=== PATIENT | male | born 1940 | race Caucasian/White ===

== ENCOUNTER 2017-07-25 08:41 | Emergency (ER) | payer OTHER ==
[~2017-07-25] VITALS: Ht 167.6 cm; Wt 75.0 kg
[~2017-07-25 08:41] MED LIST: CHOLESTEROL MED; LISI10TA2 PO; METF500T4 PO; OMEG-80 PO; PRAV20TA63 PO
[2017-07-25 08:43] VITALS: Ht 167.6 cm; Wt 75.0 kg
--- NOTE | 2017-07-25 09:00 | ERD ---
ER Documentation Chief Complaint Date/Time DATE: 07/25/17 TIME: 08:57 Chief Complaint cough & congestion x4 days, seen by pcp yesterday given abx & cough med HPI 77-year-old male brought in by daughter complaining of cough and congestion 1 week. Cough is productive, worse at night. He was seen by PCP yesterday, and was given azithromycin and Robitussin. He is here today because he feels that Robitussin has not helped, and he had not slept for 2 days. She has history of diabetes, hypertension, and asthma. Denies shortness of breath at this time. Denies chest pain. Ice fever or chills. ROS All systems reviewed and are negative except as per history of present illness. Medications Home Meds Active Scripts Sodium Chloride (Saline Nasal Mist) 126 Ml Mist, 2 SPRAY NASAL Q2H Y for NASAL CONGESTION, #1 BOTTLE Prov:RADHA MARTINEZ. [employer] CONSULTANT 07/25/17 Guaifenesin-Codeine Phosphate* (Guaifenesin* AC Cough Syrup) 473 Ml Liquid, 10 ML PO QHS Y for COUGH, #60 ML Prov:RADHA MARTINEZ. [employer]AND CONSULTANT 07/25/17 Reported Medications [place]-3S/Dha/Epa/Fish Oil/D3 (FISH OIL + D3 SOFTGEL) 1 Each Capsule, 1 EACH PO DAILY 07/13/13 Metformin* (Glucophage*) 500 Mg Tab, 500 MG PO BID 07/13/13 Pravastatin Sodium* (Pravastatin Sodium*) 20 Mg Tablet, 20 MG PO DAILY 07/13/13 Lisinopril* (Lisinopril*) 10 Mg Tablet, 10 MG PO DAILY 07/13/13 [Cholesterol Med] No Conflict Check, DAILY 07/13/13 Allergies Allergies: Coded Allergies: No Known Allergy (Unverified , 07/13/13) PMhx/Soc History of Surgery: No Anesthesia Reaction: No Hx Neurological Disorder: No Hx Respiratory Disorders: No Hx Cardiac Disorders: Yes (HIGH CHOL) Hx Psychiatric Problems: No Hx Miscellaneous Medical Probl: Yes (dm, high cholesterol) Hx Alcohol Use: No Hx Substance Use: No Hx Tobacco Use: No (MANY YEARS AGO) Physical Exam Vitals Vital Signs Date Time Temp Pulse Resp B/P Pulse Ox O2 Delivery O2 Flow Rate FiO2 07/25/17 08:43 97.1 71 20 118/76 97 Physical Exam General: Well-developed, well-nourished, conscious and coherent, in no distress Skin: Warm and dry without rash, good texture and turgor Head: Normocephalic without evidence of trauma Eyes: Sclera and conjunctivae normal; pupils equal, round, and reactive to light; extraocular movements are intact Nose/Face: Nasal mucosa erythematous and swollen with clear rhinorrhea Mouth/throat: Mucous membranes are moist. Posterior pharynx clear without erythema or exudates Neck: Supple without meningismus or adenopathy. Carotids are equal. Trachea midline. No bruits or JVD Chest: Normal AP diameter. Good expansion without retractions. Nontender. Lung sounds diminished but clear to auscultate bilaterally with good tidal volume Heart: Regular rate and rhythm. No murmur, rub, or gallops heard Extremities: Full range of motion. Good strength bilaterally. No clubbing, cyanosis, or edema. Peripheral pulses are intact. Sensation intact Neuro: Alert and oriented 4, GCS 15. Cranial nerves grossly intact. Motor and sensory exams nonfocal. Moves all extremities. Speech clear. Gait normal Procedures/MDM 77-year-old male with history of diabetes, hypertension, asthma present ED with cough 1 week. Chest x-ray is obtained, it was negative. Patient is afebrile, in no respiratory distress. Lungs are clear to auscultate. I doubt that patient has pneumonia or bronchitis. Likely patient's symptoms are result of viral upper respiratory infection. Patient has already been given azithromycin and Robitussin by his PCP. I will prescribe guaifenesin with codeine for him to use at night only to help him sleep. Patient appears well, stable for discharge and outpatient management. Medical decision making shared with patient and family. Education provided to patient and family. Patient and family expressed understanding of the plan. Medications on discharge: Off this was codeine, saline nasal spray. Follow-up: Primary care provider in 2-3 days or return to ED if worse. Disclaimer: Inadvertent spelling and grammatical errors are likely due to EHR/ dictation software use and do not reflect on the overall quality of patient care. Also, please note that the electronic time recorded on this note does not necessarily reflect the actual time of the patient encounter. Departure Diagnosis: Primary Impression: URI (upper respiratory infection) URI type: acute nasopharyngitis (common cold) Qualified Code: J00 - Acute nasopharyngitis Condition: Stable RADHA MARTINEZ NP Jul 25, 2017 09:00
--- NOTE | 2017-07-25 09:34 | RADRPT ---
PROCEDURE: XR Chest. CLINICAL INDICATION: Cough TECHNIQUE: Single AP view of the chest were obtained COMPARISON: None FINDINGS: The heart and mediastinum are within normal limits. The pulmonary vasculature are unremarkable. The aorta demonstrates atherosclerotic calcifications. There is no lung consolidation, pleural effusio n or pneumothorax. Degenerative changes are seen within the thoracic spine. There is no acute osse ous abnormality. IMPRESSION: No acute disease. RPTAT: AA .Emelyn Lares MD, Date Time Electronically viewed and signed by .Emelyn Lares MD, MD on 07/25/2017 09:33 .J/
[2017-07-25] MEDS ORDERED: SODI126M NASAL (09:45)
[2017-07-25] MEDS ORDERED: GUAI473L22 PO (09:45)
== END 2017-07-25 10:03 | disposition home or self-care (01) ==
LOC: FTE 08:41
DX: J00 Acute nasopharyngitis [common cold] (principal); E11.9 Type 2 diabetes mellitus without complications; Z79.84 Long term (current) use of oral hypoglycemic drugs; Z87.891 Personal history of nicotine dependence
CPT/HCPCS: 71010; Z7502

== ENCOUNTER 2017-10-20 13:09 | Emergency (ER) | payer OTHER ==
[~2017-10-20] VITALS: Ht 152.4 cm; Wt 67.0 kg
[~2017-10-20 13:09] MED LIST changes: +GUAI473L22 PO; +SODI126M NASAL
[2017-10-20 13:17] VITALS: Ht 152.4 cm; Wt 67.0 kg
[2017-10-20] MEDS ORDERED: ACETAMINOPHEN 500 MG TAB PO STA (17:59)
[2017-10-20] MEDS ORDERED: SOD CHLORIDE 0.9% 1,000 ML IV ONE (18:00)
--- NOTE | 2017-10-20 18:08 | ERD ---
ER Documentation Chief Complaint Chief Complaint SOB,FEVER,COUGH HPI This is a 77-year-old male with a past medical history of hypertension, hyperlipidemia, diabetes presenting with fever, chills, productive cough with clear sputum and shortness of breath for several days. The patient's has similar symptoms. The patient has had no headache or vision changes. The patient does not endorse neck or back pain. The patient denies lightheadedness or dizziness. The patient has had no chest pain. The patient denies nausea or vomiting. The patient denies abdominal pain or changes to bowel movements or urination. The patient has had no focal deficits. The patient has had no weakness or numbness or tingling to the face or extremities. ROS All systems reviewed and are negative except as per history of present illness. Medications Home Meds Reported Medications Losartan Potassium* (Losartan Potassium*) Unknown Strength Tablet, 1 TAB PO DAILY, TAB 10/20/17 Metformin* (Glucophage*) 500 Mg Tab, 500 MG PO BID 07/13/13 Pravastatin Sodium* (Pravastatin Sodium*) 20 Mg Tablet, 20 MG PO DAILY 07/13/13 Discontinued Reported Medications [place]-3S/Dha/Epa/Fish Oil/D3 (FISH OIL + D3 SOFTGEL) 1 Each Capsule, 1 EACH PO DAILY 07/13/13 Lisinopril* (Lisinopril*) 10 Mg Tablet, 10 MG PO DAILY 07/13/13 [Cholesterol Med] No Conflict Check, DAILY 07/13/13 Discontinued Scripts Sodium Chloride (Saline Nasal Mist) 126 Ml Mist, 2 SPRAY NASAL Q2H Y for NASAL CONGESTION, #1 BOTTLE Prov:RADHA MARTINEZ [employer] DEVELOPER 07/25/17 Guaifenesin-Codeine Phosphate* (Guaifenesin* AC Cough Syrup) 473 Ml Liquid, 10 ML PO QHS Y for COUGH, #60 ML Prov:RADHA MARTINEZ. [employer]EZZA DEVELOPER 07/25/17 Allergies Allergies: Coded Allergies: Sulfa (Sulfonamide Antibiotics) (Unverified Allergy, Unknown, 10/20/17) PMhx/Soc History of Surgery: No Hx Neurological Disorder: No Hx Respiratory Disorders: No Hx Cardiac Disorders: Yes (HTN, Hypercholestrolemia) Hx Psychiatric Problems: No Hx Miscellaneous Medical Probl: Yes (DM) Hx Alcohol Use: No Hx Substance Use: No Hx Tobacco Use: No FmHx Family History: diabetes Physical Exam Vitals Vital Signs Date Time Temp Pulse Resp B/P Pulse Ox O2 Delivery O2 Flow Rate FiO2 10/20/17 23:05 2.0 10/20/17 23:04 74 22 97 Nasal Cannula 2.0 10/20/17 19:00 Nasal Cannula 2.0 10/20/17 13:17 102.2 114 18 131/71 88 Physical Exam Const: No apparent distress, well-developed, well-nourished Head: Normocephalic, Atraumatic Eyes: Normal Conjunctiva. Extraocular movements intact. Pupils equal, round and reactive to light ENT: Normal External Ears, Nose and Mouth. Neck: Full range of motion. No meningismus. Resp: Clear to auscultation bilaterally, No wheezes, rales or rhonchi Cardio: Tachycardia, Regular rhythm. No murmurs, rubs or gallops Abd: Soft, non tender, non distended. Normal bowel sounds Skin: No petechiae or rashes Back: No midline tenderness. No CVA tenderness Ext: No cyanosis, or edema Neur: Awake and alert, oriented 4. Cranial nerves intact. No facial droop. Normal strength, sensation and coordination. Psych: Normal Mood and Affect Result Diagram: 10/20/17183910/20/171839 Results 24 hrs Laboratory Tests Test 10/20/17 18:40 White Blood Count 7.710^3/ul Red Blood Count 5.8610^6/ul Hemoglobin 16.1g/dl Hematocrit 47.9% Mean Corpuscular Volume 81.7fl Mean Corpuscular Hemoglobin 27.5pg Mean Corpuscular Hemoglobin Concent 33.6g/dl Red Cell Distribution Width 13.0% Platelet Count 36015^3/UL Mean Platelet Volume 10.8fl Neutrophils % 84.8% Segmented Neutrophils % (Manual) 74% Band Neutrophils % (Manual) 11% Lymphocytes % 7.7% Lymphocytes % (Manual) 8% Reactive Lymphocytes % (Manual) 1% Monocytes % 6.8% Monocytes % (Manual) 6% Eosinophils % 0.1% Basophils % 0.3% Nucleated Red Blood Cells % 0.0/100WBC Neutrophils # 6.510^3/ul Neutrophils # (Manual) 5.810^3/ul Band Neutrophils # 0.810^3/ul Absolute Lymphocytes (Manual) 0.610^3/ul Lymphocytes # 0.610^3/ul Reactive Lymphocytes # 0.010^3/ul Monocytes # 0.510^3/ul Absolute Monocytes (Manual) 0.410^3/ul Eosinophils # 0.010^3/ul Basophils # 0.010^3/ul Nucleated Red Blood Cells # 0.010^3/ul Platelet Estimate NORMAL Poikilocytosis 1+ Anisocytosis 1+ Macrocytosis 1+ Sodium Level 141mmol/L Potassium Level 3.7mmol/L Chloride Level 99mmol/L Carbon Dioxide Level 28mmol/L Anion Gap 18 Blood Urea Nitrogen 16mg/dl Creatinine 1.06mg/dl Glucose Level 149mg/dl Lactic Acid Level 2.0mmol/L Calcium Level 9.2mg/dl Total Bilirubin 0.6mg/dl Direct Bilirubin 0.00mg/dl Indirect Bilirubin 0.6mg/dl Aspartate Amino Transf (AST/SGOT) 35IU/L Alanine Aminotransferase (ALT/SGPT) 51IU/L Alkaline Phosphatase 52IU/L Total Protein 8.3g/dl Albumin 4.7g/dl Globulin 3.60g/dl Albumin/Globulin Ratio 1.30 Current Medications Medications (Trade) Dose Ordered Sig/Vilma Route PRN Reason Start Time Stop Time Status Last Admin Dose Admin Acetaminophen 1000 mg 1,000 mg ONCE STAT PO 10/20/17 17:59 10/20/17 18:03 DC 10/20/17 18:26 Sodium Chloride (NS) 1,000 ml @ 1,000 mls/hr Q1H ONCE IV 10/20/17 18:00 10/20/17 18:59 DC 10/20/17 18:57 Ketorolac Tromethamine (Toradol) 15 mg ONCE STAT IV 10/20/17 20:59 10/20/17 21:01 DC 10/20/17 21:19 Oseltamivir Phosphate 75 mg 75 mg ONCE ONCE PO 10/20/17 21:00 10/20/17 21:01 DC 10/20/17 21:20 Azithromycin (Zithromax 500mg/ NS (Pmx)) 250 ml @ 250 mls/hr ONCE ONCE IVPB 10/20/17 21:00 10/20/17 21:59 DC 10/20/17 21:25 Ipratropium [place] (Atrovent 0.02% (Neb)) 1.5 mg ONCE STAT INH 10/20/17 21:00 10/20/17 21:01 DC 10/20/17 23:03 Albuterol (Proventil 0.5% (Neb)) 15 mg ONCE STAT INH 10/20/17 21:00 10/20/17 21:01 DC 10/20/17 23:03 Methylprednisolone Sodium Succinate (Solu-Medrol) 125 mg ONCE STAT IV 10/20/17 21:00 10/20/17 21:01 DC 10/20/17 21:20 Procedures/MDM MDM The patient's presentation warrants further investigation. The patient is flulike symptoms. He is febrile and tachycardic. A septic workup will be performed. The patient will be given IV fluids in the emergency department. Flu testing will be completed. LABS The patient's blood work was obtained and reviewed. The patient's CBC shows no leukocytosis but he does have a left shift with bandemia. The patient is febrile and does possible have a systemic infection. The patient is not anemic today. The patient's platelet count is unremarkable. The patient's CMP shows no signs of metabolic or electrolyte emergencies. The patient has unremarkable renal and hepatic function testing. The patient's lactic acid is right at 2.0. The patient's influenza testing was negative. However, his was positive for the flu. I have high suspicion in this patient for the flu in this setting and I will treat. EKG EKG read by me: Rate/Rhythm: Regular rate and rhythm at a rate of 89 bpm Intervals: Normal [place]: Left shifted Impression: No evidence of ischemia or arrhythmia IMAGING CXR FINDINGS: The cardiomediastinal silhouette demonstrates enlargement of the cardiac silhouette. There are aortic calcifications. There is bilateral lower lung peribronchial thickening. No pleural effusion is seen. No definite pneumothorax. No acute osseous abnormality. IMPRESSION: Bilateral lower lung peribronchial thickening, which can be seen with bronchitis. No focal consolidation to suggest pneumonia. Electronically viewed and signed by Edgar Lloyd Physician on 10/20/2017 18:57 TREATMENT/DISPOSITION The patient did have mild wheezing and coarse breath sounds. I am suspicious of bronchitis or COPD exacerbation. I am also highly suspicious of the flu. His symptoms started yesterday. The patient will get Tamiflu in the emergency department. The patient will also get COPD medications of nebulized ipratropium and albuterol as well as methylprednisolone. The patient was given a dose of azithromycin as well. He was given 1 L of IV fluids. While I do suspect the infection, he does not meet criteria for severe sepsis. After treatment, the patient expressed dramatic improvement. He does not want to stay in the hospital. She had decision-making was enacted. I discussed admission versus discharge with the patient as well as his family. He would like to follow-up as an outpatient. The patient's heart rate and temperature dramatically improved. The patient did have a drastic improvement of his oxygenation as well. After nebulized treatment, the patient's oxygenation was 96-97% on room air. At this time, I feel that the patient stable for discharge. He will be given prescriptions for albuterol, prednisone, azithromycin and Tamiflu. The patient will need follow-up with his primary care physician in 1-3 days. The patient will be given strict precautions with which to return to the emergency department. The patient's blood pressure was elevated at greater than 120/80 while in the emergency department. The patient was otherwise stable with no evidence of hypertensive urgency or emergency or end organ damage. The patient does not require admission for blood pressure control. I have discussed with the patient the risks of hypertension. I have advised the patient to follow up with the primary care physician for outpatient monitoring and treatment for hypertension in 2-3 days. I have instructed the patient to return to the ER for any new or worsening symptoms including chest pain, shortness of breath, headache, blurred vision, confusion, nausea, vomiting or LOC. Disclaimer: Inadvertent spelling and grammatical errors are likely due to EHR/ dictation software use and do not reflect on the overall quality of patient care. Note that the electronic time recorded on this note does not necessarily reflect the actual time of the patient encounter. Departure Diagnosis: Primary Impression: Flu-like symptoms Additional Impressions: Bronchitis Hypoxia Condition: Stable DUDLEY GERONIMO MD Oct 20, 2017 18:08
[2017-10-20] MEDS ORDERED: LOSA25TA5 PO (18:22)
--- NOTE | 2017-10-20 18:57 | RADRPT ---
PROCEDURE: XR Chest. CLINICAL INDICATION: Flu-like symptoms. TECHNIQUE: Single frontal view of the chest was obtained. COMPARISON: None FINDINGS: The cardiomediastinal silhouette demonstrates enlargement of the cardiac silhouette. There are aorti c calcifications. There is bilateral lower lung peribronchial thickening. No pleural effusion is seen. No definite pneumothorax. No acute osseous abnormality. IMPRESSION: Bilateral lower lung peribronchial thickening, which can be seen with bronchitis. No focal consolida tion to suggest pneumonia. RPTAT: EE Edgar Lloyd Physician Date Time Electronically viewed and signed by Edgar Lloyd Physician on 10/20/2017 18:57 PH/
[2017-10-20 19:19] LABS: ABNORMAL IP MESSAGE 1; BASOPHILS % 0.3 % (0.0-2.0); EOSINOPHILS % 0.1 % (0.0-7.0); HEMATOCRIT 47.9 % (42.0-52.0); HEMOGLOBIN 16.1 g/dl (14.0-18.0); LYMPHOCYTES # 0.6 10^3/ul (0.8-2.9); LYMPHOCYTES % 7.7 % (15.0-51.0); MEAN CORPUSCULAR HEMOGLOBIN 27.5 pg (29.0-33.0); MEAN CORPUSCULAR HGB CONC 33.6 g/dl (32.0-37.0); MEAN CORPUSCULAR VOLUME 81.7 fl (82.0-101.0); MEAN PLATELET VOLUME 10.8 fl (7.4-10.4); MONOCYTE # 0.5 10^3/ul (0.3-0.9); MONOCYTES % 6.8 % (0.0-11.0); NEUTROPHIL # 6.5 10^3/ul (1.6-7.5); NEUTROPHILS % 84.8 % (39.0-77.0); PLATELET COUNT 156 10^3/UL (140-415); POSITIVE DIFF @See below; RED BLOOD COUNT 5.86 10^6/ul (4.70-6.10); WHITE BLOOD COUNT 7.7 10^3/ul (4.8-10.8)
[2017-10-20 19:37] LABS: ALBUMIN 4.7 g/dl (3.3-4.9); ALBUMIN/GLOBULIN RATIO 1.3; BILIRUBIN,INDIRECT 0.6 mg/dl (0-1.1); BILIRUBIN,TOTAL 0.6 mg/dl (0.2-1.3); CALCIUM 9.2 mg/dl (8.4-10.2); CREATININE 1.06 mg/dl (0.61-1.24); POTASSIUM 3.7 mmol/L (3.5-5.1); TOTAL PROTEIN 8.3 g/dl (6.1-8.1)
[2017-10-20 20:39] LABS: ANISOCYTOSIS 1+ (0-0); MONOCYTES % (M) 6 % (0-11); PLATELET ESTIMATE NORMAL; POIKILOCYTOSIS 1+ (0-0); REACTIVE LYMPHOCYTES% (M) 1 % (0-0)
[2017-10-20] MEDS ORDERED: KETOROLAC 15 MG INJ IV STA (20:59)
[2017-10-20] MEDS ORDERED: AZITHROMYCIN 500MG/NS (PMX) 250 ML IVPB ONE (21:00)
[2017-10-20] MEDS ORDERED: OSELTAMIVIR 75 MG CAP PO ONE (21:00)
[2017-10-20] MEDS ORDERED: IPRATROPIUM (NEB) 0.5 MG/2.5 ML AMP INH STA (21:00)
[2017-10-20] MEDS ORDERED: ALBUTEROL 0.5% (NEB) 2.5 MG/0.5 ML AMP INH STA (21:00)
[2017-10-20] MEDS ORDERED: METHYLPREDNISOLONE 125 MG INJ IV STA (21:00)
[2017-10-21] MEDS ORDERED: AZIT250T94 PO (00:38)
[2017-10-21] MEDS ORDERED: PRED20TA PO (00:38)
[2017-10-21] MEDS ORDERED: ALBU18HF INHALATION (00:38)
[2017-10-21] MEDS ORDERED: OSLT75C PO (00:39)
[2017-10-21 01:00] VITALS: BP 113/62; PULSE 92; RESP 16; TEMP 98.8
== END 2017-10-21 01:21 | disposition home or self-care (01) ==
LOC: E/R 13:09
DX: J40 Bronchitis, not specified as acute or chronic (principal); R09.02 Hypoxemia; I10 Essential (primary) hypertension; E11.9 Type 2 diabetes mellitus without complications; Z79.84 Long term (current) use of oral hypoglycemic drugs
CPT/HCPCS: 71010; 80053; 83605; 85025; 87400; 94644; 96374; 96375; J0456; J1885; J2930; J7030; Z7502; Z7610

== ENCOUNTER 2018-11-03 12:31 | Emergency (ER) | payer OTHER ==
[~2018-11-03] VITALS: Ht 167.6 cm; Wt 78.0 kg
[~2018-11-03 12:31] MED LIST changes: +ALBU18HF INHALATION; +AZIT250T PO; -CHOLESTEROL MED; -GUAI473L22 PO; -LISI10TA2 PO; +LOSA25TA12 PO; +METF-849 PO; -METF500T4 PO; -OMEG-80 PO; +OSEL75CA23 PO; +PRED20TA PO; -SODI126M NASAL
[2018-11-03 12:32] VITALS: Ht 167.6 cm; Wt 78.0 kg
[2018-11-03] MEDS ORDERED: SOD CHLORIDE 0.9% 500 ML IV STA (12:58)
--- NOTE | 2018-11-03 12:59 | ERD ---
ER Documentation Chief Complaint Chief Complaint SHORTNESS OF BREATH , COUGH X 1 WEEK HPI 78-year-old male with history of diabetes and hypertension, presents to the emergency department, complaining of worsening of upper respiratory symptoms for 1 week. During the last 2 days the patient is complaining of increased fever, worsening of cough, associated with mild shortness of breath and general malaise. The patient has been taking [id number] medication without improvement of the symptoms. He denies chest pain, no palpitations. ROS All systems reviewed and are negative except as per history of present illness. Medications Home Meds Active Scripts Albuterol Sulfate* (Proair HFA*) 8.5 Gm Hfa.aer.ad, 2 PUFF INH Q4H PRN for WHEEZING AND SOB, #1 INHALER Prov:MANOJ CHANEY MD 11/03/18 Reported Medications Omeprazole* (Omeprazole*) 20 Mg Capsule.dr, 20 MG PO AC BREAKFAST 11/04/18 Losartan-Hydrochlorothiazide (Losartan-HCTZ) 50-12.5 Mg Tab, 1 TAB PO DAILY 11/04/18 Ipratropium [place]* (Atrovent HFA*) 12.9 Gm Aer.w.adap, 2 PUFF INHALATION QID PRN for WHEEZING AND SOB, #1 INHALER 11/04/18 Metformin* (Glucophage*) 500 Mg Tab, 500 MG PO BID 07/13/13 Pravastatin Sodium* (Pravastatin Sodium*) 20 Mg Tablet, 20 MG PO DAILY 07/13/13 Discontinued Reported Medications Losartan Potassium* (Losartan Potassium*) Unknown Strength Tablet, 1 TAB PO DAILY, TAB 10/20/17 Discontinued Scripts Acetaminophen* (Tylenol*) 325 Mg Tablet, 2 TAB PO Q8 PRN for PAIN AND OR ELEVATED TEMP, #20 TAB Prov:MANOJ CHANEY MD 11/03/18 Inhaler, Assist Devices (Compact Space Chamber) 1 Each Spacer, EACH MC Q4H WHILE AWAKE PRN for COUGH, #1 Prov:MANOJ CHANEY MD 11/03/18 Loratadine* (Loratadine*) 10 Mg Tablet, 10 MG PO DAILY, #10 TAB Prov:MANOJ CHANEY MD 11/03/18 Azithromycin* (Zithromax*) 250 Mg Tablet, 250 MG PO .ZPACK DIRECTED, #6 TAB TAKE 500 MG (2 TABS) THE FIRST DAY THEN 250 MG (1 TAB) DAYS 2-5 Prov:MANOJ CHANEY MD 11/03/18 Oseltamivir Phosphate* (Tamiflu*) 75 Mg Capsule, 75 MG PO BID for 5 Days, CAP Prov:DUDLEY GERONIMO MD 10/21/17 Albuterol Sulfate* (Ventolin HFA*) 18 Gm Hfa.aer.ad, 2 PUFF INHALATION Q4H, #1 INHALER Prov:DUDLEY GERONIMO MD 10/21/17 Prednisone* (Prednisone*) 20 Mg Tab, 40 MG PO DAILY for 4 Days, TAB Prov:DUDLEY GERONIMO MD 10/21/17 Azithromycin* (Zithromax*) 250 Mg Tablet, 250 MG PO .ZPACK DIRECTED, #6 TAB TAKE 500 MG (2 TABS) THE FIRST DAY THEN 250 MG (1 TAB) DAYS 2-5 Prov:DUDLEY GERONIMO MD 10/21/17 Allergies Allergies: Coded Allergies: Sulfa (Sulfonamide Antibiotics) (Unverified Allergy, Unknown, 11/04/18) PMhx/Soc History of Surgery: No Anesthesia Reaction: No Hx Neurological Disorder: No Hx Respiratory Disorders: No Hx Cardiac Disorders: Yes (HTN, Hypercholestrolemia) Hx Psychiatric Problems: No Hx Miscellaneous Medical Probl: Yes (DM) Hx Alcohol Use: No Hx Substance Use: No Hx Tobacco Use: No Smoking Status: Never smoker Physical Exam Vitals Vital Signs Date Temp Pulse Resp B/P (MAP) Pulse Ox O2 O2 Flow FiO2 Time Delivery Rate 11/03/18 100.5 85 26 123/76 94 Room Air 15:19 (92) 11/03/18 82 18 96 21 13:54 11/03/18 100.1 95 22 130/65 94 12:32 (86) Physical Exam Const: Febrile, no acute distress Head: Atraumatic Eyes: Normal Conjunctiva ENT: Erythematous oropharynx, normal External Ears, Nose and Mouth. Neck: Full range of motion. No meningismus. Resp: Diffuse rhonchi to auscultation bilaterally Cardio: Regular rate and rhythm, no murmurs Abd: Soft, non tender, non distended. Normal bowel sounds Skin: No petechiae or rashes Back: No midline or flank tenderness Ext: No cyanosis, or edema Neur: Awake and alert Psych: Normal Mood and Affect Result Diagram: 11/03/18 1322 11/03/18 1322 Results 24 hrs Laboratory Tests Test 11/03/18 13:22 11/03/18 13:30 White Blood Count 11.4 10^3/ul Red Blood Count 5.19 10^6/ul Hemoglobin 14.3 g/dl Hematocrit 42.0 % Mean Corpuscular Volume 80.9 fl Mean Corpuscular Hemoglobin 27.6 pg Mean Corpuscular Hemoglobin Concent 34.0 g/dl Red Cell Distribution Width 12.8 % Platelet Count 206 10^3/UL Mean Platelet Volume 9.8 fl Immature Granulocytes % 0.500 % Neutrophils % 76.4 % Lymphocytes % 11.7 % Monocytes % 9.7 % Eosinophils % 1.3 % Basophils % 0.4 % Nucleated Red Blood Cells % 0.0 /100WBC Immature Granulocytes # 0.060 10^3/ul Neutrophils # 8.7 10^3/ul Lymphocytes # 1.3 10^3/ul Monocytes # 1.1 10^3/ul Eosinophils # 0.2 10^3/ul Basophils # 0.0 10^3/ul Nucleated Red Blood Cells # 0.0 10^3/ul Urine Color YELLOW Urine Clarity CLEAR Urine pH 5.0 Urine Specific [place] 1.020 Urine Ketones NEGATIVE mg/dL Urine Nitrite NEGATIVE mg/dL Urine Bilirubin NEGATIVE mg/dL Urine Urobilinogen 1+ mg/dL Urine Leukocyte Esterase NEGATIVE Hussain/ul Urine Microscopic RBC 0 /HPF Urine Microscopic WBC 1 /HPF Urine Mucus FEW /HPF Urine Hemoglobin 1+ mg/dL Urine Glucose 1+ mg/dL Urine Total Protein 1+ mg/dl Sodium Level 136 mmol/L Potassium Level 3.9 mmol/L Chloride Level 98 mmol/L Carbon Dioxide Level 25 mmol/L Anion Gap 13 Blood Urea Nitrogen 16 mg/dl Creatinine 1.14 mg/dl Est Glomerular Filtrat Rate mL/min mL/min Glucose Level 215 mg/dl Calcium Level 9.4 mg/dl Troponin I < 0.012 ng/ml POC Venous Lactate 2.0 mmol/L Current Medications Medications Dose Sig/Vilma Start Time Status Last (Trade) Ordered Route PRN Stop Time Admin Dose Reason Admin Sodium 500 ml @ Q1H STAT 11/03/18 DC 11/03/18 Chloride 500 mls/hr IV 12:58 13:34 11/03/18 13:57 Albuterol 5 mg ONCE STAT 11/03/18 DC 11/03/18 (Proventil HHN 13:44 13:52 0.083% (Neb)) 11/03/18 13:47 Ipratropium 0.5 mg ONCE ONCE 11/03/18 DC 11/03/18 Naalehu HHN 14:00 13:52 (Atrovent 11/03/18 14:01 0.02% (Neb)) Ceftriaxone 50 ml @ ONCE ONCE 11/03/18 DC 11/03/18 Sodium 100 mls/hr IVPB 14:00 14:03 11/03/18 14:29 500 mg ONCE ONCE 11/03/18 DC 11/03/18 Azithromycin PO 14:00 14:03 (Zithromax) 11/03/18 14:01 8 mg ONCE ONCE 11/03/18 DC 11/03/18 Dexamethasone IV 14:00 14:03 (Decadron) 11/03/18 14:01 DIAGNOSTIC IMAGING REPORT Patient: STEVEN QUINTEROS : 1940 Age: 78 Sex: M MR #: [id number] DOS: 11/03/18 1258 Ordering MD: MANOJ CHANEY MD Location: [facility] [place] Room/Bed: PROCEDURE: XR Chest 1 View. CLINICAL INDICATION: Shortness of breath. TECHNIQUE: Single view of the chest was obtained. COMPARISON: DR RODRIGUEZ 10/20/2017 FINDINGS: Mediastinum: Within normal limits of size. Lungs: Hyperexpanded lungs. Patchy potential infiltrates in the perihilar right lower lobe. Atelectasis versus minimal infiltrates in the left lower lobe. 1.6 cm nodular density over the lingula. Mild interstitial prominence in both lungs. No pneumothorax. Osseous structures: Intact. Degenerative changes in the shoulders. Other: None. IMPRESSION: Patchy potential infiltrates in the perihilar right lower lobe. Atelectasis versus minimal infiltrates in the left lower lobe. 1.6 cm nodular density over the lingula. This could reflect a lung nodule. Further characterization with CT is recommended. Hyperexpanded lungs with diffuse mild interstitial prominence in both lungs. Interstitial prominence could be chronic. Findings could reflect COPD. RPTAT: AA .Bal Patrick MD, MD Date Time Electronically viewed and signed by .Bal Patrick MD, MD on 11/03/2018 13:37 EKG read by me: Rate/Rhythm: Regular rate and rhythm at a rate of 93 Intervals: Normal No acute ST changes. No T wave inversion Impression: No evidence of acute ischemia or arrhythmia Procedures/MDM Vital signs stable, no respiratory distress. Differential diagnosis include but not limited to: Respiratory infection bacterial/viral/fungal. Influenza, COPD, pneumonitis, allergies, GERD. Less likely pulmonary embolism, cardiac related. Physical examination and clinical presentation consistent most likely with viral infection with early superimposed bacterial infection. During the ED course the patient remained stable, no new complaints. Treatment options and clinical impression discussed with the patient who agrees with management. The patient is stable to be treated outpatient and will be discharged home. Some side effects of prescribed medications (headache, rash, nausea, vomiting, diarrhea, interactions with other medications) were reviewed. The patient needs to follow up with the primary care provider in the next 48h. If symptoms persist, worsen or new symptoms develop, then patient should return to the ED immediately. Disclaimer: Inadvertent spelling and grammatical errors are likely due to EHR/dictation software use and do not reflect on the overall quality of patient care. Also, please note that the electronic time recorded on this note does not necessarily reflect the actual time of the patient encounter. Departure Diagnosis: Primary Impression: Superimposed infection Additional Impression: Cough Condition: Stable Additional Instructions: Muchas froy por [facility] para [facility]aint servicio. Esperamos que en [facility] visita a la alysa de emergencia [facility]saint problema medico haya sido solucionado y que se sienta mucho mejor. Para estar seguros que [facility]aint mejoria sigue en proceso, le pedimos el favor de hacer angelica elyssa de seguimiento medico con [facility] doctor primario en los proximos 2-4 sidhu. Lleve con usted estos documentos y las medicinas recetadas. Si willi sintomas empeoran, NO SE ESPERE, por favor regrese a alysa de emergencia INMEDIATAMENTE. En low que usted no tenga un mdico de atencin primaria: Llame al mdico o clnica comunitaria de referencia que aparece abajo ruddy las horas de consultorio para hacer angelica elyssa para que le vean. CLINICAS: [facility] [id number] [facility] [id number] [facility] [id number] [facility] [phone] [facility] [phone] [address] [facility]. [phone] MANOJ NAVARRO MD Nov 03, 2018 12:59
[2018-11-03] MEDS ORDERED: ALBUTEROL 0.083% (NEB) 2.5 MG/3 ML AMP HHN STA (13:44)
[2018-11-03] MEDS ORDERED: DEXAMETHASONE 10 MG/ML 1 ML INJ IV ONE (14:00)
[2018-11-03] MEDS ORDERED: IPRATROPIUM (NEB) 0.5 MG/2.5 ML AMP HHN ONE (14:00)
[2018-11-03] MEDS ORDERED: CEFTRIAXONE 1 GM/50 ML (PMX) 50 ML IVPB ONE (14:00)
[2018-11-03] MEDS ORDERED: AZITHROMYCIN 250 MG TAB PO ONE (14:00)
[2018-11-03] MEDS ORDERED: ALBU8.5H8 INH (14:57)
[2018-11-03] MEDS ORDERED: ACET325T33 PO (14:57)
[2018-11-03] MEDS ORDERED: LORA10TA3 PO (14:57)
[2018-11-03] MEDS ORDERED: INHA-3 MC (14:57)
[2018-11-03] MEDS ORDERED: AZIT250T PO (14:57)
[2018-11-03 15:19] VITALS: BP 123/76; PULSE 85; RESP 26
[2018-11-04] MEDS ORDERED: ATRO INHALATION (09:44)
[2018-11-04] MEDS ORDERED: LOSA1TAB22 PO (09:46)
[2018-11-04] MEDS ORDERED: OMEP20CA16 PO (09:47)
[2018-11-08] MEDS ORDERED: LEVO500T48 PO (14:11)
[2018-11-08] MEDS ORDERED: DILT120C77 PO (14:11)
[2018-11-08] MEDS ORDERED: METF-480 NGT (14:11)
[2018-11-08] MEDS ORDERED: APIX5TAB PO (14:11)
== END 2018-11-03 15:20 | disposition home or self-care (01) ==
LOC: FTE 12:31
DX: A49.9 Bacterial infection, unspecified (principal); E11.9 Type 2 diabetes mellitus without complications; I10 Essential (primary) hypertension; R05 Cough; Z79.84 Long term (current) use of oral hypoglycemic drugs
CPT/HCPCS: 71045; 80048; 81001; 83605; 84484; 85025; 93005; 94664; 96374; 96375; J0696; J1100; J7040; Z7502; Z7610